=== PATIENT | male | born 1950 | race Caucasian/White ===

== ENCOUNTER 2017-05-30 14:09 | Inpatient (IN) | payer OTHER, MEDICARE ==
[~2017-05-30] VITALS: Ht 188 cm; Wt 89.5 kg
[~2017-05-30 14:09] MED LIST: ALEVE220 MG PO; MULTIVITAMIN1 EAC2 PO
[2017-05-30 15:15] LABS: EOSINOPHIL (%) 1.9 % (0-5); EOSINOPHIL COUNT 0.2 K/uL (0-0.3); HEMATOCRIT 38.5 % (38.0-50.0); IMMATURE GRANULOCYTE (%) 0.4 % (0.0-0.7); LYMPHOCYTE COUNT 1.9 K/uL (1.0-2.8); MCH 31.4 PG (29.0-34.0); MCHC 33.2 G/DL (30.0-36.0); MCV 94.4 FL (86-99); MEAN PLAT.VOLUME 11.9 uM^3 (9.0-12.4); MONOCYTE (%) 11.1 % (3-12); NEUTROPHIL (%) 65.3 % (45-76); NRBC (%) 0.2 /100 WBC (0-0); PLATELET COUNT 142 K/uL (156-360); RBC DIS.WIDTH-CV 12.4 % (11.8-14.6); RBC DIS.WIDTH-SD 43.5 % (39-53); RED BLOOD COUNT 4.08 M/uL (4.00-5.50); WHITE BLOOD COUNT 9.1 K/uL (4.1-10.2)
[2017-05-30 15:21] LABS: CHLORIDE 101 mEq/L (99-109); POTASSIUM 4.3 mEq/L (3.7-5.4); SODIUM 136 mEq/L (136-147)
[2017-05-30 15:23] LABS: GLUCOSE 308 mg/dL (70-99)
[2017-05-30 15:25] LABS: ANION GAP 10 MEQ/L (2-14)
[2017-05-30 15:27] LABS: GFR ESTIMATE (CALCULATED) > 59 mL/min/
[2017-05-30 15:28] LABS: UREA NITROGEN (BUN) 17 mg/dL (9-23)
[2017-05-30] MEDS ORDERED: ZOCOR40 MG PO (16:51)
[2017-05-30] MEDS ORDERED: GLUCOPHAGE1000 MG PO (16:52)
[2017-05-30] MEDS ORDERED: NEURONTIN100 MG PO (16:53)
[2017-05-30] MEDS ORDERED: METAMUCIL0.52 GM PO (16:53)
[2017-05-30 17:39] VITALS: BP 143/82
[2017-05-30 19:25] VITALS: BP 137/81
[2017-05-30 23:37] VITALS: BP 123/59
[2017-05-31 04:10] VITALS: BP 121/64
[2017-05-31 05:31] LABS: EOSINOPHIL (%) 2.4 % (0-5); EOSINOPHIL COUNT 0.2 K/uL (0-0.3); HEMATOCRIT 35.4 % (38.0-50.0); IMMATURE GRANULOCYTE (%) 0.5 % (0.0-0.7); INSTRUMENT ABS NEUTROPHIL CT 5.2 K/uL; LYMPHOCYTE COUNT 2.4 K/uL (1.0-2.8); MCH 31.8 PG (29.0-34.0); MCHC 33.6 G/DL (30.0-36.0); MCV 94.7 FL (86-99); MONOCYTE (%) 9.3 % (3-12); MONOCYTE COUNT 0.8 K/uL (0-0.8); NEUTROPHIL (%) 59.4 % (45-76); NEUTROPHIL COUNT 5.2 K/uL (1.8-6.4); PLATELET COUNT 137 K/uL (156-360); RBC DIS.WIDTH-CV 12.7 % (11.8-14.6); RED BLOOD COUNT 3.74 M/uL (4.00-5.50); WHITE BLOOD COUNT 8.8 K/uL (4.1-10.2)
[2017-05-31 06:13] LABS: ANION GAP 8 MEQ/L (2-14); CHLORIDE 107 MEQ/L (99-109); GFR ESTIMATE (CALCULATED) > 59 mL/min/; POTASSIUM 4.1 MEQ/L (3.7-5.4); SAMPLE HEMOLYSIS CHECK 0; SAMPLE ICTERIC CHECK 0; SAMPLE LIPEMIA CHECK 0; SODIUM 141 MEQ/L (136-147); UREA NITROGEN (BUN) 16 mg/dL (9-23)
[2017-05-31 06:14] LABS: GLUCOSE 150 mg/dL (70-99)
[2017-05-31 09:14] VITALS: BP 124/70
[2017-05-31 11:15] VITALS: BP 132/68
[2017-05-31 11:59] LABS: POINT-OF-CARE METER ID UU14174225
[2017-05-31 15:16] VITALS: BP 127/63
[2017-05-31 17:01] LABS: POINT-OF-CARE METER ID UU14174225
[2017-05-31 19:57] VITALS: BP 145/82
[2017-05-31 23:26] VITALS: BP 126/75
[2017-06-01 03:36] VITALS: BP 121/74
[2017-06-01 06:50] LABS: Estimated Average Glucose 203 mg/dL (70-123); HEMOGLOBIN A1c (GLYCOHEMOGLOB) 8.7 % HGB (Below 5.7)
[2017-06-01 07:42] VITALS: BP 134/73
[2017-06-01 08:00] LABS: POINT-OF-CARE METER ID UU14188625
[2017-06-01 11:32] LABS: POINT-OF-CARE METER ID UU14188625
[2017-06-01 16:00] VITALS: BP 166/88
[2017-06-01 16:41] LABS: POINT-OF-CARE METER ID UU14188625
[2017-06-01 21:11] LABS: POINT-OF-CARE METER ID UU14188625; POINT-OF-CARE USER ID BHSKTD
[2017-06-01 23:40] VITALS: BP 128/67
[2017-06-02 07:58] LABS: POINT-OF-CARE METER ID UU14188625
[2017-06-02 08:27] VITALS: BP 145/82
[2017-06-02] MEDS ORDERED: ROCEPHIN2 GM/50 ML IV (11:34)
[2017-06-02 12:03] LABS: POINT-OF-CARE METER ID UU14188625
== END 2017-06-02 13:12 | disposition home or self-care (01) | DRG 638 ==
LOC: EME 14:09 → 5SOUTH 15:55 → EDOF 15:55 → ENRESERV 15:58 → 5SOUTH 17:18 → ENPENDDIS 06-02 → 5SOUTH 06-02 13:12
PROVIDERS: Emergency Medicine; Hospitalist; Physician Assistant
DX: E11.69 Type 2 diabetes mellitus with other specified complication (principal); M86.172 Other acute osteomyelitis, left ankle and foot; E11.40 Type 2 diabetes mellitus with diabetic neuropathy, unspecified; E11.621 Type 2 diabetes mellitus with foot ulcer; L03.032 Cellulitis of left toe; E78.5 Hyperlipidemia, unspecified; F17.210 Nicotine dependence, cigarettes, uncomplicated; S92.532B Displaced fracture of distal phalanx of left lesser toe(s), initial encounter for open fracture; Z89.411 Acquired absence of right great toe; Z79.4 Long term (current) use of insulin; L97.529 Non-pressure chronic ulcer of other part of left foot with unspecified severity; D69.6 Thrombocytopenia, unspecified; I10 Essential (primary) hypertension; Z89.412 Acquired absence of left great toe; E11.628 Type 2 diabetes mellitus with other skin complications; Z79.84 Long term (current) use of oral hypoglycemic drugs; E11.65 Type 2 diabetes mellitus with hyperglycemia; B95.61 Methicillin susceptible Staphylococcus aureus infection as the cause of diseases classified elsewhere; X58.XXXA Exposure to other specified factors, initial encounter
CPT/HCPCS: 73630; 73720; 80048; 80202; 82948; 83036; 85025; 85651; 86140; 87070; 87075; 87077; 87147; 87186; 87205; 99281; 99285; J1644; J1815; J2543; J3370; J7050

== ENCOUNTER 2017-06-05 13:27 | Day surgery (SDC) | payer OTHER, MEDICARE ==
[~2017-06-05] VITALS: Ht 188 cm; Wt 86.1 kg
[~2017-06-05 13:27] MED LIST changes: +GLUCOPHAGE1000 MG PO; +METAMUCIL0.52 GM PO; +NEURONTIN100 MG PO; +ROCEPHIN2 GM/50 ML IV; +ZOCOR40 MG PO
[2017-06-05 14:00] VITALS: BP 145/74
[2017-06-05 14:35] LABS: POINT-OF-CARE METER ID UU13113694
[2017-06-05 17:38] LABS: POINT-OF-CARE METER ID UU13113675
[2017-06-05 18:10] VITALS: BP 140/69
== END 2017-06-05 18:39 | disposition home or self-care (01) ==
LOC: SDC 13:27
PROVIDERS: Surgery
PROC: 0Y6N0Z5 Detachment at Left Foot, Complete 2nd Ray, Open Approach (ICD-10-PCS; principal; 2017-06-05)
DX: M86.10 Other acute osteomyelitis, unspecified site (principal); E11.69 Type 2 diabetes mellitus with other specified complication; E11.40 Type 2 diabetes mellitus with diabetic neuropathy, unspecified; I10 Essential (primary) hypertension; F17.200 Nicotine dependence, unspecified, uncomplicated
CPT/HCPCS: 82948; 88305; 88311; 93005; J0690; J2250; J2405; J3010